=== PATIENT | female | born 1950 | race Caucasian/White ===

== ENCOUNTER 2018-07-01 13:52 | Emergency (ER) | payer OTHER ==
[~2018-07-01] VITALS: Ht 162.6 cm; Wt 117.9 kg
[2018-07-01 14:44] LABS: ABSOLUTE NEUTROPHILS 12.3 thou/uL (1.4-8.2); BASOPHILS 0.9 % (0.0-2.0); EOSINOPHILS 0.3 % (0.0-3.0); HEMATOCRIT 39.1 % (37.0-47.0); HEMOGLOBIN 13.5 gm/dL (12.0-15.0); LYMPHOCYTES 5.4 % (24.0-44.0); MCH 31.6 pg (26.0-34.0); MCHC 34.5 g/dL (28.0-37.0); MCV 91.7 fL (80.0-100.0); MONOCYTES 5.3 % (1.0-8.0); PLATELET COUNT 176 thou/uL (150-400); POLYS 88.1 % (36.0-66.0); RBC 4.26 mil/uL (4.20-5.00); RDW 13.7 % (10.5-14.5); WBC 13.9 thou/uL (4.0-11.0)
[2018-07-01 15:07] LABS: ANION GAP 13 mmol/L (7-16); BUN 33 mg/dL (7-18); CALCIUM 9.1 mg/dL (8.5-10.1); CHLORIDE 102 mmol/L (98-107); CO2 22 mmol/L (21-32); CREATININE 1.5 mg/dL (0.6-1.0); GLUCOSE 165 mg/dL (74-106); POTASSIUM 3.5 mmol/L (3.5-5.1); SODIUM 137 mmol/L (136-145)
[2018-07-01 15:15] LABS: ALBUMIN 3.6 g/dL (3.4-5.0); SGOT 26 U/L (15-37); SGPT 37 U/L (30-65); TOTAL BILIRUBIN 0.3 mg/dL (<0.1-1.0); TOTAL PROTEIN 7.3 g/dL (6.4-8.2); TROPONIN-I <0.06 ng/mL (<0.06)
[2018-07-01 15:58] LABS: URINE BILIRUBIN NEGATIVE (Negative); URINE BLOOD NEGATIVE (Negative); URINE CLARITY CLEAR; URINE COLOR YELLOW; URINE GLUCOSE-RANDOM* NEGATIVE (Negative); URINE KETONES NEGATIVE (Negative); URINE LEUKOCYTES TRACE (Negative); URINE NITRITE NEGATIVE (Negative); URINE PROTEIN (DIPSTICK) NEGATIVE (Negative); URINE UROBILINOGEN 0.2 E.U./dl (0.2-1.0)
[2018-07-01] MEDS ORDERED: ABILIFY 5 MG TAB5 MG PO (16:59)
[2018-07-01] MEDS ORDERED: VITAMIN D5000 UNIT PO (16:59)
[2018-07-01] MEDS ORDERED: REFRESH TEARS15 ML OPHTHALMIC (17:00)
[2018-07-01] MEDS ORDERED: SODIUM BICARBO650 M3 PO (17:01)
[2018-07-01] MEDS ORDERED: INVEGA SUS234 MG/1.5 IM (17:02)
[2018-07-01] MEDS ORDERED: SYSTANE 0.3-0.1 EACH OPHTHALMIC (17:02)
[2018-07-01] MEDS ORDERED: GENTEAL SEVERE10 GM OPHTHALMIC (17:02)
[2018-07-01] MEDS ORDERED: NYSTATIN100000 UNI SW&SWALLOW (17:03)
[2018-07-01] MEDS ORDERED: TYMLOS1.56 ML SUBQ (17:04)
[2018-07-01 20:08] VITALS: BP 154/75
--- NOTE | 2018-07-02 09:18 | EKG ---
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 ANN : 1950 Requested By: Elva Guardado Order Number: [id number] MD: Renny Boyce Measurements Intervals [place] Rate: 113 P: -33 GA: 178 QRS: -16 QRSD: 83 T: 138 QT: 293 QTc: 402 Interpretive Statements Sinus tachycardia Atrial premature complex Nonspecific ST and T wave abnormality No previous ECG available for comparison Electronically Signed On 07-02-2018 9:18:36 SOCCER REFEREE by Renny Boyce [email or web address] ��������������������������������������������� <ELECTRONICALLY SIGNED> ���������������������������������������� By: Renny Boyce MD, [facility] ��������������������������������������������� 07/02/18 0918 1422 142 Renny Boyce MD, FACC /EPI
== END 2018-07-01 20:10 ==
LOC: ER 13:52
PROVIDERS: Student in an Organized Health Care Education/Training Program
DX: R00.2 Palpitations (principal); R42 Dizziness and giddiness; R07.89 Other chest pain; N18.3 Chronic kidney disease, stage 3 (moderate); F31.9 Bipolar disorder, unspecified; F20.9 Schizophrenia, unspecified; K76.0 Fatty (change of) liver, not elsewhere classified; M81.0 Age-related osteoporosis without current pathological fracture; Z86.2 Personal history of diseases of the blood and blood-forming organs and certain disorders involving the immune mechanism; Z88.6 Allergy status to analgesic agent; Z88.8 Allergy status to other drugs, medicaments and biological substances; Z88.4 Allergy status to anesthetic agent